=== PATIENT | female | born 2000 | race Two or more races ===

== ENCOUNTER 2023-11-01 11:50 | Outpatient (CLI) | payer OTHER | END 2023-11-01 11:52 | disposition home or self-care (01) | LOC: PRENATAL 11:50 | PROVIDERS: ATTEND Obstetrics & Gynecology Maternal & Fetal Medicine | DX: O35.9XX0 Maternal care for (suspected) fetal abnormality and damage, unspecified, not applicable or unspecified (principal); O35.3XX0 Maternal care for (suspected) damage to fetus from viral disease in mother, not applicable or unspecified; Z3A.23 23 weeks gestation of pregnancy ==

== ENCOUNTER → 2024-01-03 10:03 | Outpatient (CLI) | payer OTHER | END | disposition home or self-care (01) | LOC: PRENATAL 10:03 | PROVIDERS: ATTEND Obstetrics & Gynecology Maternal & Fetal Medicine | DX: O26.849 Uterine size-date discrepancy, unspecified trimester (principal); O36.8199 Decreased fetal movements, unspecified trimester, other fetus; Z3A.31 31 weeks gestation of pregnancy ==